=== PATIENT | male | born 1995 | race Two or more races ===

== ENCOUNTER 2018-05-27 02:41 | Emergency (ER) | payer OTHER ==
[~2018-05-27] VITALS: Ht 167.6 cm; Wt 62.6 kg
[2018-05-27 02:44] VITALS: Ht 167.6 cm; Wt 62.6 kg
[2018-05-27 04:45] VITALS: BP 123/85
== END 2018-05-27 04:45 | disposition home or self-care (01) ==
LOC: ED 02:41
DX: H60.91 Unspecified otitis externa, right ear (principal)